=== PATIENT | male | born 1965 | race Caucasian/White ===

== ENCOUNTER 2016-11-22 20:47 | Observation (INO) ==
[2016-11-22 21:06] LABS: Basophils % 0.3 %; Eosinophils # 0.1 K/mcL (0.0-0.6); Eosinophils % 0.8 %; Hemoglobin 15.2 g/dL (12.9-16.9); Immature Granulocytes % 0.2 % (0-4); Lymphocytes # 2.6 K/mcL (0.6-4.6); Lymphocytes % 26.2 %; Mean Corpuscular HGB Conc 33.8 g/dL (31.6-35.5); Mean Corpuscular Hemoglobin 29.7 pg (28.0-33.3); Mean Corpuscular Volume 87.9 fL (83.0-100.0); Mean Platelet Volume 11.5 fL (9.4-12.4); Monocytes # 0.9 K/mcL (0.0-1.3); Neutrophils # 6.3 K/mcL (1.6-8.9); Platelet Count 227 K/mcL (140-400); Red Blood Count 5.12 M/mcL (4.19-5.50); Red Cell Distribution Width 13.8 % (11.5-14.5); Segmented Neutrophils % 63.5 %
[2016-11-22 21:10] LABS: INR 1.1; Prothrombin Time 12.3 Seconds (9.4-12.1)
[2016-11-22 21:13] LABS: Activated Partial Thrombo Time 30.3 Seconds (26.0-36.0)
[2016-11-22 21:20] LABS: BUN/Creatinine Ratio 19 (6-26); Blood Urea Nitrogen 19 mg/dL (8-26); Calcium 9.5 mg/dL (8.6-10.8); Carbon Dioxide 26 mEq/L (19-29); Chloride 108 mEq/L (98-109); Glucose 150 mg/dL (70-99); Osmolality,Calculated 299 (280-300); Potassium 3.7 mEq/L (3.5-4.5); Sodium 142 mEq/L (136-145); eGFR For African Americans > 60 (> 60); eGFR For Non-African Americans > 60 (> 60)
[2016-11-22] MEDS ORDERED: Aspirin 325 MG TABLET PO ONE (22:47)
--- NOTE | 2016-11-22 22:50 | Emergency Department Note ---
Disposition Clinical Impression: Chest pain Qualifiers: Chest pain type: unspecified Qualified Code(s): R07.9 - Chest pain, unspecified Disposition: Admitted As Inpatient General Adult HPI - General Chief complaint: ED Chest Pain Stated complaint: chest pain Source: patient Limitations: no limitations Nursing Notes Reviewed: Yes Vital Signs Reviewed: Yes - History of Present Illness HPI Narrative: 51-year-old male with a history of hypertension, previous CABG 4 vessels performed at [facility] last January. Presents today with chest pain. Chest pain onset was 2 days ago. He admits to a stabbing pain that is going into his back. He did take one nitroglycerin tablet today with resolution of his pain. EMS arrived on scene to find him with no significant distress and normal vital signs. He had no recent illness. He had no cough or congestion. He denies hemoptysis. EKG on arrival from EMS shows anterolateral ischemic changes however no evidence of STEMI. Pain Scale: 3 - Related Data Home Medications Medication Instructions Recorded Confirmed Aspirin 81 mg PO BID 06/13/16 11/22/16 Atorvastatin Calcium [Lipitor] 80 mg PO HS 11/22/16 11/22/16 Cholecalciferol (D-3) [Vitamin D] 1,000 unit PO DAILY 11/22/16 11/22/16 Cyanocobalamin (Vitamin B-12) 1,000 mcg PO DAILY 11/22/16 11/22/16 [Vitamin B12] Etodolac 500 mg PO BID 11/22/16 11/22/16 Gabapentin [Neurontin] 800 mg PO TID 11/22/16 11/22/16 Levothyroxine [Synthroid] 25 mcg PO QAM 11/22/16 11/22/16 Previous Rx's Medication Instructions Recorded Clopidogrel [Plavix] 75 mg PO DAILY #30 tablet 01/10/16 Metoprolol [Lopressor] 12.5 mg PO BID #30 tablet 01/10/16 Nitroglycerin 0.4 mg SL Q5MIN PRN #25 tab.subl 01/10/16 Allergies Allergy/AdvReac Type Severity Reaction Status Date / Time Penicillins Allergy Anaphylaxis Verified 01/07/16 17:38 All systems ED: reviewed and negative except as stated. Past Medical History - Past Medical History Medical history: Reports: no medical history, coronary artery disease, hypertension, myocardial infarction Surgical history: Reports: no surgical history Psychiatric history: Reports: no psych history - Social History Smoking Status: Current every day smoker Smokeless Tobacco Status: No Alcohol use: Reports: occasionally Drug use: Reports: none Physical Exam - General Limitations: no limitations General appearance: alert, in no apparent distress, appears intoxicated - Head Head exam: atraumatic - Eye Eye exam: Present: normal appearance - ENT ENT exam: normal exam - Neck Neck exam: Present: normal inspection, full ROM - Chest Chest inspection: Present: normal inspection - Respiratory Respiratory exam: Present: normal lung sounds bilaterally - Cardiovascular Cardiovascular exam: Present: regular rate, normal rhythm - Abdominal Exam Abdominal exam: Present: soft, Non-Tender - Expanded Lower Extremity Exam Gait: observed and normal - Back Exam Back exam: Present: normal inspection - Neurological Exam Neurological exam: Present: alert, oriented X3, CN II-XII intact - Psychiatric Psychiatric exam: Present: normal affect, normal mood - Skin Skin exam: Present: warm, dry Course Vital Signs Temperature 98.3 F 11/22/16 20:48 Pulse Rate 80 11/22/16 20:48 Respiratory Rate 16 11/22/16 20:48 Blood Pressure 00/00 11/22/16 20:48 O2 Sat by Pulse Oximetry 96 11/22/16 20:48 Temperature 98.3 F 11/22/16 20:48 Pulse Rate 66 11/22/16 22:10 Respiratory Rate 16 11/22/16 20:48 Blood Pressure 124/73 11/22/16 22:10 O2 Sat by Pulse Oximetry 95 11/22/16 22:10 Oxygen Delivery Oxygen Delivery Room Air Medical Decision Making - [facility] Narrative Medical decision making narrative: Male patient with history of CABG. He has some suspicious anterolateral ST segment depression which could represent ischemia. There is no evidence of STEMI. He has no current pain. Aspirin was administered. CT scan of the chest shows no evidence of pulmonary embolism or aortic dissection. Given his high-risk history as well as EKG changes which are new compared to previous EKG I would proceed with admission for acute coronary syndrome rule out. I discussed the case with the hospitalist team. The patient will be admitted to the hospitalist service. EKG shows sinus rhythm with multifocal premature ventricular contractions and normal access with normal intervals with ST segment depression in leads V4, V5, V6 as well as sloping T waves in leads 2 and 3 - Lab Data Result diagrams: 11/22/16 20:56 11/22/16 20:51 Lab Results 11/22/16 11/22/16 11/22/16 Range/Units 20:51 20:51 20:51 WBC (4.3-11.1) K/mcL RBC (4.19-5.50) M/mcL Hgb (12.9-16.9) g/dL Hct (37.5-50.1) % MCV (83.0-100.0) fL MCH (28.0-33.3) pg MCHC (31.6-35.5) g/dL RDW (11.5-14.5) % Plt Count (140-400) K/mcL MPV (9.4-12.4) fL Immature Gran % (0-4) % Seg Neutrophils % % Lymphocytes % % Monocytes % % Eosinophils % % Basophils % % Neutrophils # (1.6-8.9) K/mcL Lymphocytes # (0.6-4.6) K/mcL Monocytes # (0.0-1.3) K/mcL Eosinophils # (0.0-0.6) K/mcL Basophils # (0.0-0.2) K/mcL PT 12.3 H (9.4-12.1) Seconds INR 1.1 APTT 30.3 (26.0-36.0) Seconds Sodium 142 (136-145) mEq/L Potassium 3.7 (3.5-4.5) mEq/L Chloride 108 (98-109) mEq/L Carbon Dioxide 26 (19-29) mEq/L BUN 19 (8-26) mg/dL Creatinine 1.02 (0.72-1.25) mg/dL Est GFR ( Amer) > 60 (> 60) Est GFR (Non-Af Amer) > 60 (> 60) BUN/Creatinine Ratio 19 (6-26) Glucose 150 H (70-99) mg/dL Calculated Osmolality 299 (280-300) Calcium 9.5 (8.6-10.8) mg/dL Troponin I (0-0.03) ng/mL B-Natriuretic Peptide 87 (0-100) pg/mL 11/22/16 11/22/16 Range/Units 20:51 20:56 WBC 10.0 (4.3-11.1) K/mcL RBC 5.12 (4.19-5.50) M/mcL Hgb 15.2 (12.9-16.9) g/dL Hct 45.0 (37.5-50.1) % MCV 87.9 (83.0-100.0) fL MCH 29.7 (28.0-33.3) pg MCHC 33.8 (31.6-35.5) g/dL RDW 13.8 (11.5-14.5) % Plt Count 227 (140-400) K/mcL MPV 11.5 (9.4-12.4) fL Immature Gran % 0.2 (0-4) % Seg Neutrophils % 63.5 % Lymphocytes % 26.2 % Monocytes % 9.0 % Eosinophils % 0.8 % Basophils % 0.3 % Neutrophils # 6.3 (1.6-8.9) K/mcL Lymphocytes # 2.6 (0.6-4.6) K/mcL Monocytes # 0.9 (0.0-1.3) K/mcL Eosinophils # 0.1 (0.0-0.6) K/mcL Basophils # 0.0 (0.0-0.2) K/mcL PT (9.4-12.1) Seconds INR APTT (26.0-36.0) Seconds Sodium (136-145) mEq/L Potassium (3.5-4.5) mEq/L Chloride (98-109) mEq/L Carbon Dioxide (19-29) mEq/L BUN (8-26) mg/dL Creatinine (0.72-1.25) mg/dL Est GFR ( Amer) (> 60) Est GFR (Non-Af Amer) (> 60) BUN/Creatinine Ratio (6-26) Glucose (70-99) mg/dL Calculated Osmolality (280-300) Calcium (8.6-10.8) mg/dL Troponin I 0.02 (0-0.03) ng/mL B-Natriuretic Peptide (0-100) pg/mL
[2016-11-22] MEDS ORDERED: Naloxone 0.4 MG/ML INJ IVP PRN (23:54)
[2016-11-22] MEDS ORDERED: Acetaminophen 325 MG TABLET PO PRN (23:54)
--- NOTE | 2016-11-22 23:57 | Internal Med History&Physical ---
Date of Encounter: 11/22/16 Time of Encounter: 23:40 Assessment and Plan (1) Chest pain Current visit: Yes Status: Acute Patient reports left shoulder/upper back pain, similar to his pain at previous CA. Consider unstable angina given his underlying cardiac disease and smoking and family history. Currently pain is resolved. Continue Telemetry monitoring and serial Troponins. Continue ASA, Plavix, beta-dimas and statin. Stress test tomorrow. Outpatient Cardiology f/up. Qualifiers: Chest pain type: unspecified Qualified Code(s): R07.9 - Chest pain, unspecified (2) CAD (coronary artery disease) Current visit: Yes Status: Chronic continue ASA, Plavix, statin and beta-dimas; Qualifiers: Coronary Disease-Associated Artery/Lesion type: bypass graft [place] vs. transplanted heart: [place] heart Associated angina: without angina Qualified Code(s): I25.810 - Atherosclerosis of coronary artery bypass graft(s) without angina pectoris (3) CHF (congestive heart failure) Current visit: Yes Status: Chronic not in acute exacerbation. Echocardiogram from 01/2016 shows mildly decreased EF 40-45%. Continue beta-dimas and Telemetry monitoring. Qualifiers: Congestive heart failure type: systolic Congestive heart failure chronicity : chronic Qualified Code(s): I50.22 - Chronic systolic (congestive) heart failure (4) Hypothyroidism Current visit: Yes Status: Chronic resume home dose of Levothyroxine; Qualifiers: Hypothyroidism type: unspecified Qualified Code(s): E03.9 - Hypothyroidism , unspecified Internal Medicine - H&P: HPI Chief complaint: Chest pain Admitted From: Emergency Dept Plans for Post Hospital Care: Home History of present illness: Mr. Graff is a 51 year old male with h/o- CAD/CABG and stent placement last year, presents with c/o- left-sided shoulder and upper back pain, that is similar to his previous CA pain. His pain started 2 days ago and he kept having intermittent transient episodes daily, with slightly increasing intensity. His last episode was this evening and he decided to call EMS and come in for evaluation. His pain somewhat subsided with Nitroglycerin he took at home, has been pain-free since being to ER. Had slight dizziness but no associated syncope , dyspnea, diaphoresis, nausea or emesis. He does follow with as an outpatient. Past Med Surg Social Fam HX - Past Medical History Medical history: CHF, coronary artery disease, hypertension, myocardial infarction Psychiatric history: no psych history - Past Surgical History Surgical History: coronary bypass (CABG) - Social History Smoking Status: Former smoker (quit since his CA last year; currently uses vapour pen) Smokeless Tobacco Status: No Alcohol use: occasionally Drug use: none Occupational status: disabled Current living situation: Home, With Family Activity Level: Independent ambulation Recent Out of Country Travel Within the Last 8 Weeks: No - Family History Brother Adopted: No Family Member Ethnicity: Non- Twin of Family Member: Yes, Fraternal Living Status: Hx Family Cardiac Disorders: Yes (massive heart attack) Hx Family Respiratory Disorders: Yes Hx Family Cancer: Yes Hx Family GI Disorders: No Hx Family Endocrine Disorder: Yes Hx Family Neuromuscular Disorders: No Hx Family Neurologic Disorders: No Hx Family HEENT Disorders: No Hx Family Autoimmune Disorders: No Internal Medicine - H&P: Meds Clopidogrel [Plavix] 75 mg PO DAILY #30 tablet 01/10/16 [Rx] Metoprolol [Lopressor] 12.5 mg PO BID #30 tablet 01/10/16 [Rx] Nitroglycerin 0.4 mg SL Q5MIN PRN #25 tab.subl 01/10/16 [Rx] Aspirin 81 mg PO BID 06/13/16 [History] Atorvastatin Calcium [Lipitor] 80 mg PO HS 11/22/16 [History] Cholecalciferol (D-3) [Vitamin D] 1,000 unit PO DAILY 11/22/16 [History] Cyanocobalamin (Vitamin B-12) [Vitamin B12] 1,000 mcg PO DAILY 11/22/16 [History ] Etodolac 500 mg PO BID 11/22/16 [History] Gabapentin [Neurontin] 800 mg PO TID 11/22/16 [History] Levothyroxine [Synthroid] 25 mcg PO QAM 11/22/16 [History] Allergies Penicillins Allergy (Verified 01/07/16 17:38) Anaphylaxis All Systems PM: A 10-system review of systems was performed and is negative for pertinent findings except as documented above in the HPI. - Constitutional Constitutional: no chills, no fever(s), no night sweats - EENT Eyes: no change in vision, no discharge, no pain, no photophobia Ears: no ear discharge, no ear pain, no tinnitus Nose, mouth and throat: no dysphagia, no nasal discharge, no neck pain, no sore throat - Cardiovascular Cardiovascular ROS IM: chest pain (left shoulder and upper back pain, similar to his previous CA pain), lightheadedness - Respiratory Respiratory: no cough, no dyspnea, no wheezing, no excessive phlegm production - Gastrointestinal Gastrointestinal: no abdominal pain, no diarrhea, no hematemesis, no hematochezia, no melena, no nausea, no vomiting - Musculoskeletal Musculoskeletal ROS IM: other (left leg pain since CABG graft was taken from left leg; unable to walk long distances), no numbness, no tingling - Integumentary Integumentary IM: no rash, no unusual bruising - Neurological Neurological ROS: no confusion, no convulsions, no focal weakness, no numbness, no tingling, no tremor(s) - Hematologic/Lymphatic Hematologic/Lymphatic: no easy bruising - Constitutional Vitals: Temp Pulse Resp BP Pulse Ox 99.4 F 56 16 128/79 97 11/22/16 23:33 11/22/16 23:33 11/22/16 23:33 11/22/16 23:33 11/22/16 23:33 General appearance: Present: A&O X 3, answers questions appropriately - Respiratory Respiratory exam: Present: CTAB. Absent: accessory muscle use, rales, rhonchi, wheezes - Cardiovascular Cardiovascular exam: Present: RRR, +S1, +S2. Absent: diastolic murmur, gallop, rubs, systolic murmur - GI/Abdominal GI/Abdominal exam: Present: normal bowel sounds, soft, no peritoneal signs. Absent: distended, tenderness - Extremities Exam Extremities exam: Present: full ROM, warm, radial pulses palpable and symetrical. Absent: calf tenderness, cyanotic, pedal edema - Neurological Exam Neurological exam: Present: CN II-XII intact, oriented X3, no focal deficits. Absent: pronater drift, facial droop, speech deficit - Skin Skin exam: Present: dry, intact Internal Med - H&P Results - Labs CBC & Chem 7: 11/22/16 20:56 11/22/16 20:51 - EKG Data -: EKG Interpreted by Myself EKG shows normal: sinus rhythm (multiple PVCs and aberrant conduction? nonspecific ST changes/depression in lateral leads, but difficult to interpret) Rate: normal
[2016-11-23 00:50] LABS: Basophils # 0.1 K/mcL (0.0-0.2); Basophils % 0.5 %; Eosinophils % 0.4 %; Hematocrit 44.2 % (37.5-50.1); Hemoglobin 14.8 g/dL (12.9-16.9); Immature Granulocytes % 0.3 % (0-4); Lymphocytes # 2.3 K/mcL (0.6-4.6); Lymphocytes % 22.3 %; Mean Corpuscular HGB Conc 33.5 g/dL (31.6-35.5); Mean Corpuscular Hemoglobin 29.2 pg (28.0-33.3); Mean Corpuscular Volume 87.2 fL (83.0-100.0); Mean Platelet Volume 11.6 fL (9.4-12.4); Monocytes # 0.8 K/mcL (0.0-1.3); Monocytes % 7.6 %; Neutrophils # 7.2 K/mcL (1.6-8.9); Platelet Count 236 K/mcL (140-400); Red Blood Count 5.07 M/mcL (4.19-5.50); Red Cell Distribution Width 13.7 % (11.5-14.5); Segmented Neutrophils % 68.9 %
[2016-11-23 01:05] LABS: BUN/Creatinine Ratio 21 (6-26); Blood Urea Nitrogen 18 mg/dL (8-26); Calcium 9.1 mg/dL (8.6-10.8); Carbon Dioxide 20 mEq/L (19-29); Chloride 112 mEq/L (98-109); Chol/HDL Ratio 3.8 (0-4.9); Cholesterol 151 mg/dL (< 200); Glucose 122 mg/dL (70-99); HDL Cholesterol 40 mg/dL (40-59); LDL Cholesterol,Calculated 86 mg/dL (0-99); Magnesium 2.1 mg/dL (1.6-2.6); Osmolality,Calculated 295 (280-300); Phosphorous 3.2 mg/dL (2.3-4.7); Potassium 3.9 mEq/L (3.5-4.5); Sodium 141 mEq/L (136-145); Triglycerides 124 mg/dL (< 150); eGFR For African Americans > 60 (> 60); eGFR For Non-African Americans > 60 (> 60)
[2016-11-23] MEDS: Levothyroxine 25 MCG TABLET PO SCH (05:43)
[2016-11-23] MEDS ORDERED: Regadenoson 0.4 MG/5 ML SYRINGE IVP ONE (06:47)
[2016-11-23] MEDS: Cholecalciferol (D-3) 1,000 UNIT TABLET PO SCH (11:20)
[2016-11-23] MEDS: Gabapentin 400 MG CAPSULE PO SCH ×3 (11:20→20:41)
[2016-11-23] MEDS: Aspirin 81 MG TAB.CHEW PO SCH ×2 (11:20→20:41)
[2016-11-23] MEDS: Cyanocobalamin (B-12) 1,000 MCG TABLET PO SCH (11:20)
--- NOTE | 2016-11-23 12:02 | Nuclear Medicine Stress Report ---
Regadenoson Nuclear Stress Name: Reyes Graff Date of Study: 11/23/2016 Date: 1965 Ht: 62.0 in Medical Record#: [id number] Age: 51 Wt: 150.0 lb Gender: Male Order #: [id number] Location: [facility] Room: [facility] Supervising Provider: Gerard Maldonado CNP Reading Physician: Arnold Turpin MD, [facility] Ordering Physician: Myrna Grady CNP Primary Care Physician: Kaley Pyle CNP Stress Technologist: Erwin Gonzalez, CHANNEL WORKER, CCT Nurse First Aid: Martin Espinoza Indications: L shoulder pain Impression: Perfusion imaging was positive for inferior infarct with mild vishal-infarct ischemia (SDS - 2). Pharmacologic ECG was non diagnostic for ischemia. Patient had no chest pain with stress. Normal hemodynamic response. Gated EF = 67%. There is no evidence of TID. The LV is not dilated. Ordering provider and cardiology consultation notified. History: Hypertension Hypercholesteremia History of Smoking Prior PCI History of Coronary Artery Bypass Surgery Stress Test Summary: Stress Test Type: Pharmacologic Regadenoson 0.4mg/5ml given IV Baseline Information: Initial Heart Rate: 64 Blood Pressure: 110/84 Stress Information: Stress Time: 4 min 00 sec Test Terminated Due to (primary): Completed Protocol Maximum Blood Pressure: 124/84 Maximum Heart Rate: 103 Percent Maximum Heart Rate Achieved: 61 Double Product: 12,772 METS Reached: 1 Symptoms: Shortness of breath Nuclear Summary: SPECT myocardial perfusion imaging using Tc99m Sestamibi given intravenously was performed at rest and following cardiac stress testing. The resting images were obtained following initial dose of 10.8 mCi. Following stress an additional dose of 35.7 mCi was given at peak exercise or 30 seconds post regadenoson infusion. Medication Given: Time Medication Dose Units Route Findings: Stress Note * Resting ECG demonstrated normal sinus rhythm. * No baseline arrhythmias were noted. * Pharmacologic stress ECG is non diagnostic for ischemia due to failure to reach target heartrate. * Rare PVCs noted during stress. * Patient had no chest pain during stress. Study Quality * Study quality is average. Hemodynamic responses * Normal hemodynamic responses to pharmacologic stress. Gated EF % * Gated EF = 67%. Left Ventricle * The left ventricle is not dilated. NORMALS * Normal wall motion. Inferior Perfusion Stress * No evidence of uptake in inferior segment. Inferior Perfusion Rest * No evidence of uptake in inferior segment. TID * No evidence of transient ischemic dilatation. TID ratio * TID ratio = 1.0. Updated by Arnold Turpin MD, FACC on 11/23/2016 11:55:06 AM electronically signed on 11/23/2016 11:59:44 AM with status of Final
--- NOTE | 2016-11-23 13:36 | Cardiology Consult Note ---
<Gerard Maldonado - Last Filed: 11/23/16 13:30> Date of Encounter: 11/23/16 Time of Encounter: 15:30 Assessment and Plan (1) Abnormal stress test Current Visit: Yes Status: Acute Stress test revealed inferior infarct and mild vishal-infarct ischemia. H/o inferior infarct in 2016 s/p PCI to the RCA at that time. He later went for CABG with Dr. Marcano 02/2016. Continue asa, statin, and bb. Medical managment vs. C discussed. Will discuss further with Dr. Bermudez. (2) CAD (coronary artery disease) Current Visit: Yes Status: Chronic S/p PCI to RCA and CABG in 2016. continue ASA, Plavix, statin and beta-dimas; Qualifiers: Coronary Disease-Associated Artery/Lesion type: bypass graft [place] vs. transplanted heart: [place] heart Associated angina: without angina Qualified Code(s): I25.810 - Atherosclerosis of coronary artery bypass graft(s) without angina pectoris (3) PVC (premature ventricular contraction) Current Visit: Yes Status: Acute Frequent PVC seen on telemetry. No runs of NSVT seen. Avg HR 61 bpm NSR. HR frequently in the 50's. Unable to titrate bb. Continue to monitor. (4) Cardiomyopathy Current Visit: Yes Status: Acute H/o mild ischemic cardiomyoapthy. EF 40%-45%. Gated EF 67% on stress test. Currently euvolemic. Qualifiers: Cardiomyopathy type: ischemic Qualified Code(s): I25.5 - Ischemic cardiomyopathy Discussion w patient/family: The assessment and plan as outlined above was discussed with the patient and/or family members who expressed understanding and agreement. All questions were answered. Thank you for involving us in the care of your patient. Please call with any questions. History of Present Illness Consult date: 11/23/16 Requesting physician: Carmen Arias Consult reason: Abnormal stress test Chief complaint: Chest pain, scapular back pain History of present illness: Mr. Graff is a 51 year old male with h/o CABG x 4 on 03/06/[address] Marcano at [facility], post operative afib, ischemic cardiomyoapthy with EF 40-45%, and hypertension. He presents with left scapular pain for the last 24 hours. Pain is intermittent and does not occur with physical exertion. States he had left scapular pain with previous WI. Troponin found to be negative. EKG unchanged from previous, SR with T wave changes, multiple PVC. Cardiology consulted for abnormal stress test. Cardiac catheterization 01/07/16: Severe 3V CAD. EF 40%. 50% stenosis in the LMCA, 80% stenosis in the Proximal LAD, 80% stenosis in the Mid LAD, 80% stenosis in the Proximal Circumflex, 60% stenosis in the Mid Circumflex. 100% stenosis in the Proximal RCA. Thrombus present. PTCA/ JACOB to Proximal RCA. 100% stenosis in the Mid RCA. Thrombus present. PTCA/JACOB to mRCA with good results. Echocardiogram 01/08/16: LVEF 40-45%. Mild global LV systolic dysfunction with regional variations. RV is not well visualized, grossly there is normal function. No significant valvular dysfunction. Estimated RVSP was 17 mmHg. No pulmonary hypertension. The IVC is not dilated. Past Med Surg Social Fam HX - Past Medical History Medical history: CHF, coronary artery disease, hypertension, myocardial infarction Psychiatric history: no psych history - Past Surgical History Surgical History: coronary bypass (CABG) - Social History Smoking Status: Former smoker (quit since his WI last year; currently uses vapour pen) Smokeless Tobacco Status: No Alcohol use: occasionally Drug use: none - Family History Brother Adopted: No Family Member Ethnicity: Non- Twin of Family Member: Yes, Fraternal Living Status: Hx Family Cardiac Disorders: Yes (massive heart attack) Hx Family Respiratory Disorders: Yes Hx Family Cancer: Yes Hx Family GI Disorders: No Hx Family Endocrine Disorder: Yes Hx Family Neuromuscular Disorders: No Hx Family Neurologic Disorders: No Hx Family HEENT Disorders: No Hx Family Autoimmune Disorders: No Medications and Allergies Clopidogrel [Plavix] 75 mg PO DAILY #30 tablet 01/10/16 [Rx] Metoprolol [Lopressor] 12.5 mg PO BID #30 tablet 01/10/16 [Rx] Nitroglycerin 0.4 mg SL Q5MIN PRN #25 tab.subl 01/10/16 [Rx] Aspirin 81 mg PO BID 06/13/16 [History] Atorvastatin Calcium [Lipitor] 80 mg PO HS 11/22/16 [History] Cholecalciferol (D-3) [Vitamin D] 1,000 unit PO DAILY 11/22/16 [History] Cyanocobalamin (Vitamin B-12) [Vitamin B12] 1,000 mcg PO DAILY 11/22/16 [History ] Etodolac 500 mg PO BID 11/22/16 [History] Gabapentin [Neurontin] 800 mg PO TID 11/22/16 [History] Levothyroxine [Synthroid] 25 mcg PO QAM 11/22/16 [History] Allergies Penicillins Allergy (Verified 01/07/16 17:38) Anaphylaxis All Systems Review: A 10-system review of systems was performed and is negative for pertinent findings except as documented above in the HPI. Physical Examination Vital Signs, Last 4 Hours Temp Pulse Resp BP Pulse Ox 11/23/16 11:39 98.7 F 59 14 101/61 95 General: Conversant, No Apparent Distress HEENT: Atraumatic, Normocephaly, Mucus Membranes Moist Neck: No JVD, Normal carotid pulses Cardiac: Reg Rate and Rhythm, Normal S1 and S2, No Murmur Lungs: Normal Breath Sounds, No Wheeze, Rales, Rhonchi Neuro: Alert and responsive, No focal deficits noted Abdomen: Soft, Non-Tender Skin: No rashes noted on visualized skin Musculoskeletal: No Chest Wall Tenderness Extremities: No Clubbing, No Cyanosis, No Edema, Normal Pulses Results 11/23/16 00:22 11/23/16 00:22 Lab Results 11/23/16 11/23/16 11/23/16 00:22 00:22 00:22 WBC 10.5 Hgb 14.8 Hct 44.2 Plt Count 236 Sodium 141 Potassium 3.9 Chloride 112 H Carbon Dioxide 20 BUN 18 Creatinine 0.86 Glucose 122 H Calcium 9.1 Magnesium 2.1 Troponin I 0.00 11/23/16 11/23/16 05:45 12:09 WBC Hgb Hct Plt Count Sodium Potassium Chloride Carbon Dioxide BUN Creatinine Glucose Calcium Magnesium Troponin I 0.01 0.01 Chest X-Ray 11/22/16 20:50 IMPRESSION: 1. No acute cardiopulmonary disease. D/ / Fredrick Caal MD / Fredrick Caal MD Interpreting Provider: Fredrick Caal MD Chest CTA 11/22/16 21:28 IMPRESSION: No PE identified. Mild pulmonary emphysema. D/ / Naun Nicholson MD / Naun Nicholson MD Interpreting Provider: Naun Nicholson MD - Imaging and Cardiology Stress Test: report reviewed - EKG Interpretation EKG results cardiology: personally reviewed Consult Discharge Plan - Plan Referrals: Kaley Pyle, RADIO FREQUENCY TECHNICIAN [Primary Care Provider] - <Darrell Bermudez - Last Filed: 11/24/16 08:21> Date of Encounter: 11/24/16 Assessment and Plan Discussion w patient/family: The assessment and plan as outlined above was discussed with the patient and/or family members who expressed understanding and agreement. All questions were answered. Thank you for involving us in the care of your patient. Please call with any questions. Angina appears to be mild. GXT does not warrant a cath at present . Will try Imdur ambulation if CP persists will consider cath d/w patient and History of Present Illness History of present illness: Mr. Graff is a 51 year old male All Systems Review: A 10-system review of systems was performed and is negative for pertinent findings except as documented above in the HPI. Physical Examination Vital Signs, Last 4 Hours Temp Pulse Resp BP Pulse Ox 11/24/16 07:21 97.3 F L 57 16 96/60 95 Results 11/23/16 00:22 11/23/16 00:22 Lab Results 11/23/16 12:09 Troponin I 0.01
--- NOTE | 2016-11-23 18:51 | Internal Med Progress Note ---
Date of Encounter: 11/23/16 Time of Encounter: 15:00 - Assessment and plan (1) Tobacco abuse Current Visit: No Status: Chronic Assessment and plan: He quit smoking cigarettes 6 months ago but continues to use inhaler vaporized nicotine. I have advised him regarding the health hazards of nicotine. (2) WPW (Hxpve-Nclfidbux-Atkpc syndrome) Current Visit: No Status: Acute Assessment and plan: EKG shows ventricular preexcitation. We will avoid calcium channel blockers. Monitor on telemetry. (3) Chest pain Current Visit: Yes Status: Acute Assessment and plan: We will treat with nitroglycerin as needed. Qualifiers: Chest pain type: unspecified Qualified Code(s): R07.9 - Chest pain, unspecified (4) CAD (coronary artery disease) Current Visit: Yes Status: Chronic Qualifiers: Coronary Disease-Associated Artery/Lesion type: bypass graft [place] vs. transplanted heart: [place] heart Associated angina: without angina Qualified Code(s): I25.810 - Atherosclerosis of coronary artery bypass graft(s) without angina pectoris (5) Essential hypertension Current Visit: Yes Status: Acute (6) Abnormal stress test Current Visit: Yes Status: Acute Assessment and plan: We will consult cardiology. Continue to monitor on telemetry. Bedrest. (7) PVC (premature ventricular contraction) Current Visit: Yes Status: Acute Assessment and plan: case monitor. Check and replete electrolytes. - Subjective Interval history: Patient presented with left shoulder and back pain radiating to the chest, currently has resolved. His pain had resolved yesterday with nitroglycerin. No nausea or diaphoresis reported. - Constitutional Vitals: Temp Pulse Resp BP Pulse Ox 98.4 F 51 16 100/61 96 11/23/16 15:13 11/23/16 15:13 11/23/16 15:13 11/23/16 15:13 11/23/16 15:13 General appearance: Present: A&O X 3, answers questions appropriately - Respiratory Respiratory exam: Present: CTAB. Absent: accessory muscle use, rales, rhonchi, wheezes - Cardiovascular Cardiovascular exam: Present: RRR, +S1, +S2. Absent: diastolic murmur, gallop, rubs, systolic murmur - GI/Abdominal GI/Abdominal exam: Present: normal bowel sounds, soft, no peritoneal signs. Absent: distended, tenderness - Extremities Exam Extremities exam: Present: warm, radial pulses palpable and symetrical. Absent : calf tenderness, cyanotic, pedal edema - Skin Skin exam: Present: dry, intact Internal Medicine: Result - Labs CBC & Chem 7: 11/23/16 00:22 11/23/16 00:22 Labs: Short CBC 11/23/16 Range/Units 00:22 WBC 10.5 (4.3-11.1) K/mcL Hgb 14.8 (12.9-16.9) g/dL Hct 44.2 (37.5-50.1) % Plt Count 236 (140-400) K/mcL Neutrophils # 7.2 (1.6-8.9) K/mcL BMP 11/23/16 00:22 Sodium 141 Potassium 3.9 Chloride 112 H Carbon Dioxide 20 BUN 18 Creatinine 0.86 Glucose 122 H Calcium 9.1 Cardiac Enzymes 11/23/16 11/23/16 11/23/16 Range/Units 00:22 05:45 12:09 Troponin I 0.00 0.01 0.01 (0-0.03) ng/mL - ABG Interpretation ABG results: PT/INR, D-dimer PT 12.3 Seconds (9.4-12.1) H 11/22/16 20:51 Consult Discharge Plan - Plan Referrals: Kaley Pyle, ROBERT [Primary Care Provider] -
[2016-11-24] MEDS: Levothyroxine 25 MCG TABLET PO SCH (06:34)
[2016-11-24] MEDS: Aspirin 81 MG TAB.CHEW PO SCH ×2 (08:17→21:11)
[2016-11-24] MEDS: Cholecalciferol (D-3) 1,000 UNIT TABLET PO SCH (08:17)
[2016-11-24] MEDS: Cyanocobalamin (B-12) 1,000 MCG TABLET PO SCH (08:17)
[2016-11-24] MEDS: Gabapentin 400 MG CAPSULE PO SCH ×3 (08:18→21:11)
--- NOTE | 2016-11-24 10:42 | Cardiology Progress Note ---
Date of Encounter: 11/24/16 Time of Encounter: 10:00 Assessment and Plan (1) Abnormal stress test Current Visit: Yes Status: Acute Stress test revealed inferior infarct and mild vishal-infarct ischemia. H/o inferior infarct in 2016 s/p PCI to the RCA at that time. He later went for CABG with Dr. Marcano 02/2016. Continue asa, statin, and bb. Medical managment vs. LHC discussed. Discussed with Dr. Bermudez, medical management is recommended. Imdur started. Ambulate in the hallway to assess for recurrent symptoms. Close outpatient follow-up if no recurrent symptoms. (2) CAD (coronary artery disease) Current Visit: Yes Status: Chronic S/p PCI to RCA and CABG in 2016. continue ASA, Plavix, statin and beta-dimas; Qualifiers: Coronary Disease-Associated Artery/Lesion type: bypass graft [place] vs. transplanted heart: [place] heart Associated angina: without angina Qualified Code(s): I25.810 - Atherosclerosis of coronary artery bypass graft(s) without angina pectoris (3) PVC (premature ventricular contraction) Current Visit: Yes Status: Acute Frequent PVC seen on telemetry. No runs of NSVT seen. Avg HR 61 bpm NSR. HR frequently in the 50's. Unable to titrate bb. Continue to monitor. (4) Cardiomyopathy Current Visit: Yes Status: Acute H/o mild ischemic cardiomyoapthy. EF 40%-45%. Gated EF 67% on stress test. Currently euvolemic. Qualifiers: Cardiomyopathy type: ischemic Qualified Code(s): I25.5 - Ischemic cardiomyopathy Discussion w patient/family: The assessment and plan as outlined above was discussed with the patient and/or family members who expressed understanding and agreement. All questions were answered. Thank you for involving us in the care of your patient. Please call with any questions. Subjective Principal diagnosis: Abnormal stress test Interval history: Currently denies pain. Reported left-sided mild scapular pain on admission and intermittently. Objective Vital Signs, Last 4 Hours Temp Pulse Resp BP Pulse Ox 11/24/16 07:21 97.3 F L 57 16 96/60 95 General: Conversant, No Apparent Distress HEENT: Atraumatic, Normocephaly, Mucus Membranes Moist Neck: No JVD, Normal carotid pulses Cardiac: Reg Rate and Rhythm, Normal S1 and S2, No Murmur Lungs: Normal Breath Sounds, No Wheeze, Rales, Rhonchi Neuro: Alert and responsive, No focal deficits noted Abdomen: Soft, Non-Tender Skin: No rashes noted on visualized skin Musculoskeletal: No Chest Wall Tenderness Extremities: No Clubbing, No Cyanosis, No Edema, Normal Pulses Results 11/23/16 00:22 11/23/16 00:22 Lab Results 11/23/16 12:09 Troponin I 0.01 - Imaging and Cardiology Stress Test: report reviewed Consult Discharge Plan - Plan Referrals: Kaley Pyle, [employer] [Primary Care Provider] -
--- NOTE | 2016-11-24 17:45 | Internal Med Progress Note ---
Date of Encounter: 11/24/16 Time of Encounter: 10:00 - Assessment and plan (1) Tobacco abuse Current Visit: No Status: Chronic Assessment and plan: He quit smoking cigarettes 6 months ago but continues to use inhaler vaporized nicotine. I have advised him regarding the health hazards of nicotine. (2) WPW (Xvqog-Pibwupvwy-Pwecv syndrome) Current Visit: No Status: Acute Assessment and plan: EKG shows ventricular preexcitation. We will avoid calcium channel blockers. Monitor on telemetry. (3) Chest pain Current Visit: Yes Status: Acute Assessment and plan: Had a positive stress test. It showed fixed inferior defect with vishal-infarct ischemia. Cardiology was consulted. I appreciate the recommendations. Patient was started on isosorbide. We will monitor for 24 hours for recurrence of chest pain if this recurs we will plan for cardiac catheterization. I will keep patient nothing by mouth after midnight. If symptoms are controlled with isosorbide then will discharge patient home with close follow-up with cardiology. Qualifiers: Chest pain type: unspecified Qualified Code(s): R07.9 - Chest pain, unspecified (4) CAD (coronary artery disease) Current Visit: Yes Status: Chronic Assessment and plan: Continue aspirin Plavix, Lipitor and metoprolol. Qualifiers: Coronary Disease-Associated Artery/Lesion type: bypass graft [place] vs. transplanted heart: [place] heart Associated angina: without angina Qualified Code(s): I25.810 - Atherosclerosis of coronary artery bypass graft(s) without angina pectoris (5) Essential hypertension Current Visit: Yes Status: Acute (6) Abnormal stress test Current Visit: Yes Status: Acute Assessment and plan: Appreciate cardiology recommendations. Nothing by mouth past midnight for possible stress test. 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 Check and replete electrolytes. - Subjective Interval history: 11/24/2016: Patient reported some left upper chest and shoulder pain last night which was mild to moderate, nothing over the last 12 hours. Pain was milder than the previous episode. Denies associated diaphoresis and shortness of breath. 11/23/2016: Patient presented with left shoulder and back pain radiating to the chest, currently has resolved. His pain had resolved yesterday with nitroglycerin. No nausea or diaphoresis reported. - Constitutional Vitals: Temp Pulse Resp BP Pulse Ox 97.6 F 57 16 99/64 97 11/24/16 15:01 11/24/16 15:01 11/24/16 15:01 11/24/16 15:01 11/24/16 15:01 General appearance: Present: A&O X 3, answers questions appropriately - Respiratory Respiratory exam: Present: CTAB. Absent: accessory muscle use, rales, rhonchi, wheezes - Cardiovascular Cardiovascular exam: Present: RRR, +S1, +S2. Absent: diastolic murmur, gallop, rubs, systolic murmur - GI/Abdominal GI/Abdominal exam: Present: normal bowel sounds, soft, no peritoneal signs. Absent: distended, tenderness - Extremities Exam Extremities exam: Present: warm, radial pulses palpable and symetrical. Absent : calf tenderness, cyanotic, pedal edema - Skin Skin exam: Present: dry, intact Internal Medicine: Result - Labs CBC & Chem 7: 11/23/16 00:22 11/23/16 00:22 - ABG Interpretation ABG results: PT/INR, D-dimer PT 12.3 Seconds (9.4-12.1) H 11/22/16 20:51 Consult Discharge Plan - Plan Referrals: Kaley Pyle, NEWSPERSON [Primary Care Provider] -
[2016-11-25] MEDS: Levothyroxine 25 MCG TABLET PO SCH (05:39)
[2016-11-25 06:13] LABS: BUN/Creatinine Ratio 20 (6-26); Blood Urea Nitrogen 18 mg/dL (8-26); Calcium 8.7 mg/dL (8.6-10.8); Carbon Dioxide 24 mEq/L (19-29); Chloride 109 mEq/L (98-109); Glucose 99 mg/dL (70-99); Osmolality,Calculated 292 (280-300); Potassium 3.8 mEq/L (3.5-4.5); Sodium 140 mEq/L (136-145); eGFR For African Americans > 60 (> 60); eGFR For Non-African Americans > 60 (> 60)
[2016-11-25] MEDS: Cyanocobalamin (B-12) 1,000 MCG TABLET PO SCH (10:18)
[2016-11-25] MEDS: Aspirin 81 MG TAB.CHEW PO SCH (10:18)
[2016-11-25] MEDS: Cholecalciferol (D-3) 1,000 UNIT TABLET PO SCH (10:19)
[2016-11-25] MEDS: Gabapentin 400 MG CAPSULE PO SCH (10:21)
--- NOTE | 2016-11-25 11:09 | Pre-Sedation Evaluation ---
Pre-sedation evaluation - Pre-sedation checklist Date of procedure: 11/25/16 Procedure: HEART CATH Recent Vitals: Last Vital Signs Temp 97.7 F 11/25/16 07:29 Pulse 64 11/25/16 07:29 Resp 16 11/25/16 07:29 BP 106/66 11/25/16 07:29 Pulse Ox 96 11/25/16 07:29 H&P (including ROS) documented in medical record: Yes Previous reaction to sedatives/anesthetics: No Dietary Status: NPO after Midnight Dentition: No loose teeth or bridges ASA Classification *see protocol: CLASS II-Mild systemic disease Plan of Care: Pt appropriate candidate for procedure/moderate/conscious sedation , Risks/benefits of procedure/sedation discussed w/ patient/family
[2016-11-25] MEDS ORDERED: Heparin 1,000 UNITS/500 mL NS 500 ML ONE (11:14)
[2016-11-25] MEDS ORDERED: *HR* Heparin 10,000 UNIT/10 ML VIAL ONE (11:14)
[2016-11-25] MEDS ORDERED: 0.9 % Sodium Chloride 1,000 ML ONE ×2 (11:14→11:22)
[2016-11-25] MEDS ORDERED: Nitroglycerin 1,000 MCG/10 ML VIAL IV ONE (11:15)
[2016-11-25] MEDS ORDERED: *HR* Midazolam HCl 5 MG/5 ML VIAL IVP ONE (11:21)
[2016-11-25] MEDS ORDERED: *HR* FentaNYL (PF) 250 MCG/5 ML VIAL ONE (11:22)
--- NOTE | 2016-11-25 11:28 | Event Note ---
Date of Encounter: 11/25/16 Time of Encounter: 11:27 - Cardiology Event Note Patient continues to c/o left scapular pain despite trial of medical therapy with imdur. Recommend proceeding with stress test for further evaluation. Stress test revealed inferior infarct and mild vishal-infarct ischemia. H/o inferior infarct in 2016 s/p PCI to the RCA at that time. He later went for CABG with Dr. Marcano 02/2016. Continue asa, statin, and bb. Indications, risks, benefits, and alternatives of LHC discussed with patient and .
--- NOTE | 2016-11-25 12:12 | Invasive Diagnostic Lab Proc ---
Name: Reyes Graff Date of Study: 11/25/2016 Date: 1965 Ht: 63.0in Medical Record#: [id number] Age: 51 Wt: 147.27lb Gender: Male BSA: 1.7 Order #: [id number] BMI: 26.09 Physicians Procedure Physician: Arnold Turpin MD, [facility] Referring MD: Referring MD: Staff Name Position Time In Shubham Bronson RN Monitor 11:32 AM Harris Lee RN Harness Cutter 11:32 AM So Vaughan RT (R) Scrub 11:32 AM Indications Indication Coronary Artery Disease Procedures Performed Procedure L HRT ART/GRFT ANGIO Pre-Procedure Checklist Informed consent is complete signed and on chart. H\\T\\P is on chart. ID band is on and ID verified with patient. Patient NPO for procedure The procedure was described for the patient and questions were answered. Blood Pressure: 124/75 ECG is on chart. Rhythm: NSR Plan of Care Patient will tolerate the procedure without complications. Adequate level of comfort will be maintained. Hemodynamics will remain stable Patient will recover from procedure without complications. Respiratory function will be maintained. Cardiac rhythm will remain stable. Patient temperature will be maintained. Patient and/or family have verbalized understanding of the procedure. Patient Education Chief Complaint/Reason for Test: Cardiac Cath Developmental Category: Adult (18-64 years) Developmentally Appropriate for Age: Yes Learning Barriers: None Education Needs: Procedure Education Method: Verbal Information Taught: Cardiac Cath Educational Evaluation: Able to repeat information Intravenous Access Time IV Size Location DC'd Fluid/Drip Rate Units RN 18g 1 07/10" Patent On Arrival Lt Antecubital 0.9NaCl 25 ml/hr Shubham Bronson RN Allergies Penicillins Vital Signs Time BP (mmHg) HR (bpm) O2 Sat. RR (bpm) LOC 106 / 66 64 96 % 16 5 = Fully awake and oriented or at pre-proc level 11:33 AM / % 5 = Fully awake and oriented or at pre-proc level 11:33 AM / % 4 = Oriented but drowsy 11:27 AM 124 / 75 62 99 % 15 11:32 AM 107 / 68 62 100 % 19 11:37 AM 101 / 64 57 98 % 16 11:42 AM 108 / 66 57 98 % 23 11:47 AM 107 / 66 57 98 % 19 11:52 AM 102 / 64 56 97 % 19 11:57 AM 103 / 61 56 97 % 34 11:48 AM / % 5 = Fully awake and oriented or at pre-proc level Procedural Medications Time Medication Dose Units Method Given By 11:32 AM Oxygen 2 L/min nasal cannula Harris Lee RN 11:32 AM Versed 2 mg Intravenous Harris Lee RN 11:32 AM Fentanyl 50 mcg Intravenous Harris Lee RN 11:43 AM Versed 1 mg Intravenous ChantellornHarris fuchs RN 11:43 AM Fentanyl 25 mcg Intravenous Harris Lee RN 11:43 AM Lidocaine 2% 16 ml Subcutaneous Arnold Turpin MD, [facility] ASA Classification: CLASS II- Mild systemic disease (i.e. well-controlled diabetes, hypertension, asthma, cigarette smoking) Mary Score Preprocedure Postprocedure Activity 2- Moves 4 extremities sustained head lift Activity Circulation 2- SBP +/= 20 points of pre-anesthetic level Circulation Consciousness 2- Awake and alert oriented x 3 Consciousness O2 Saturation 2- Able to maintain O2 satruation of 92% on room air O2 Saturation Respiratory 2- Able to deep breathe and cough well Respiratory Total Score 10 Total Score Contrast Agent: Isovue Diagnostic Contrast: 74 ml Total Contrast: 74 ml Fluoro Dose: 238 mGy Procedure Log Time Note Enter By 11:07 AM CathStat 11:27 AM Vitals capture started with the following parameters, Patient=Adult, Interval=5 min, Initial Wlfmtyjs=587 mmHg, Deflation Rate=5 mmHg, Cuff placed on Right Arm 11:27 AM HR=62 bpm, JCNV=505/75 mmhg, SpO2=99.0 %, Resp=15 B/min, Comment=sr 11:32 AM Pt arrived to r and d lab technician 2 at 11:20 csmith 11:32 AM Shubham Bronson RN Position: Monitor Time in: :32 csmith 11:32 AM Harris Lee RN Position: Harness Cutter Time in: 11:32 csmith 11:32 AM So Vaughan RT (R) Position: Scrub Time in: 11:32 csmith 11:32 AM Patient charges- Angio tray pack, Navilyst 3mm J, Pulse Oximetry and ACIST tubing and transducer csmith 11:32 AM Hair removed from procedure site in procedure lab using clippers. Bilateral groin prepped with Chloraprep by Shubham rBonson RN, patient was draped. Skin intact. csmith 11:32 AM Physician arrived :32 csmith 11:32 AM ASA Class CLASS II- Mild systemic disease (i.e. well-controlled diabetes, hypertension, asthma, cigarette smoking) csmith 11:32 AM Meet and greet completed csmith 11:32 AM Sign in performed according to hospital policy. csmith 11:32 AM HR=62 bpm, OKCS=007/68 mmhg, OjQ5=991.0 %, Resp=19 B/min, Comment=sr 11:32 AM Procedure start : csmith 11: AM Time: : Oxygen on at 2 L/min per nasal cannula by Harris Lee RN csmith : AM Time: : Versed 2 mg Intravenous Given by Harris Lee RN [facility] : AM Time: :32 Fentanyl 50 mcg Intravenous Given by Harris Lee RN [facility] 11:33 AM Time: :33 Patient comfortable and pain free: Yes csmith 11:33 AM Time: :33LOC: 5 = Fully awake and oriented or at pre-proc level csmith 11:34 AM Case Start : AM Pressure channel 1 zeroed. 11:37 AM HR=57 bpm, EDBH=453/64 mmhg, SpO2=98.0 %, Resp=16 B/min, Comment=sb 11:40 AM Pressure channel 1 zeroed. 11:42 AM HR=57 bpm, OBSC=980/66 mmhg, SpO2=98.0 %, Resp=23 B/min, Comment=sb : AM Time: : Versed 1 mg Intravenous Given by Harris Lee RN [facility] : AM Time: : Fentanyl 25 mcg Intravenous [facility] AM Time out performed according to hospital policy csmith :44 AM Time: : 16 ml Lidocaine 2% to right groin Subcutaneous Given by Arnold Turpin MD, [facility] csmith 11:45 AM Access obtained by percutaneous puncture. 5Fr 10cm Terumo Tennyson sheath placed in right Femoral artery. [id number] csmith 11:45 AM 5Fr FR 4 catheter inserted over the wire DNC csmith 11:46 AM 0.035 145cm Navilyst 3mmJ wire [id number] csmith 11:46 AM RCA angiography performed in multiple views. csmith 11:46 AM Recorded Pressure: Ao, HR=55, Condition=Condition 1 (Aorta) Ao 87/61/74 11:47 AM SVG to the RPDA angio performed in multiple views. csmith 11:47 AM HR=57 bpm, OOBD=588/66 mmhg, SpO2=98.0 %, Resp=19 B/min, Comment=sb 11:48 AM Time: 11:33LOC: 4 = Oriented but drowsy csmith 11:48 AM Time: 11:33 Patient comfortable and pain free: Yes csmith 11:49 AM Lesion found in Right PDA. Pre Stenosis: 90 Pre GABBY Flow: csmith 11:49 AM Lesion found in Proximal RCA. Pre Stenosis: 80 Pre GABBY Flow: csmith 11:50 AM catheter removed csmith 11:50 AM 0.035 260cm Navilyst 3mmJ wire [id number] csmith 11:50 AM 5Fr IM catheter inserted over the wire [id number] csmith 11:51 AM Left FRANCISCO to the LAD angio performed in multiple views. csmith 11:52 AM Catheter removed csmith 11:52 AM 5Fr LCB catheter inserted over the wire [id number] csmith 11:52 AM HR=56 bpm, RJVM=527/64 mmhg, SpO2=97.0 %, Resp=19 B/min, Comment=sb 11:53 AM Recorded Pressure: Ao, HR=59, Condition=Condition 1 (Aorta) Ao 98/58/75 11:53 AM SVG to the 1st Diagonal angio performed in multiple views. csmith 11:54 AM SVG to the 1st OM angio performed in multiple views. csmith 11:54 AM Catheter removed csmith 11:54 AM 5Fr FL 4 catheter inserted over the wire DNC csmith 11:55 AM Coronary Dominance: right csmith 11:55 AM LCA angiography performed in multiple views. csmith 11:56 AM Lesion found in Proximal LAD. Pre Stenosis: 70 Pre GABBY Flow: csmith 11:56 AM Lesion found in Mid LAD. Pre Stenosis: 70 Pre GABBY Flow: csmith 11:56 AM Lesion found in 1st Diagonal. Pre Stenosis: 95 Pre GABBY Flow: csmith 11:56 AM Lesion found in Proximal Circumflex. Pre Stenosis: 95 Pre GABBY Flow: csmith 11:56 AM Catheter removed csmith 11:56 AM 5Fr Pigtail catheter inserted over the wire DNC csmith 11:56 AM Catheter selectively placed in left ventricle csmith 11:56 AM Bolus angiogram of left Ventricle complete: 10 ml/sec for a total of 20 mls csmith 11:57 AM Recorded Pressure: LV, HR=60, Condition=Condition 1 (Left Ventricle) LV 91/1/11 11:57 AM Catheter removed csmith 11:57 AM HR=56 bpm, MZAO=696/61 mmhg, SpO2=97.0 %, Resp=34 B/min, Comment=sb 11:57 AM Recorded Pressure: LV, Ao, HR=57, Condition=Condition 1 (Left Ventricle) LV 93/3/13, (Aorta) Ao 88/48/67 11:58 AM Bolus angiogram of right Femoral complete: 4 ml/sec for a total of 7 mls csmith 11:58 AM Wire removed csmith 11:58 AM Procedure completed at 11:58 csmith 11:59 AM Sign out completed: Radiation Dose 238 mGy Fluoro Time: 3.3 Isovue 370 - 200ml contrast 74 ml given by Arnold Turpin MD, [facility]. Complications: NoneCardiac Rehab Consult needed: YesConfirmed administered medications: Yes csmith 11:59 AM Arterial sheath pulled, Mynx closure device used and was Successful [id number] S/N. csmith 11:59 AM Post ECG NSR csmith 11:59 AM Post Blood Pressure 103/61 csmith 11:59 AM 11:59 Post Pulses Bilateral DP 1+ csmith 12:00 PM Information taught Cardiac Cath and Mynx csmith 12:00 PM Education needs Responsibilities of Patient in Care csmith 12:00 PM Learning barriers :None csmith 12:00 PM Education Methods Verbal csmith 12:00 PM Education evaluation Able to repeat information csmith 12:00 PM Site status No bleeding/hematoma - Rt Groin as reported by So Vaughan RT (R) at 12:00 csmith 12:00 PM Opsite applied csmith 12:00 PM Plavix, Effient or Brilinta given No csmith 12:00 PM Family placed in consult room. csmith 12:04 PM Report given to 3B RN Pt taken to Room #49. 12:00 csmith 12:04 PM Time: 11:48 Patient comfortable and pain free: Yes csmith 12:04 PM Time: 11:48LOC: 5 = Fully awake and oriented or at pre-proc level csmith 12:07 PM Patient out of room: 12:07 csmith Complications Complication None Hemodynamics Pressures Site Systolic/A Wave Diastolic/V Wave Mean AO 87 61 74 AO 98 58 75 LV 91 1 11 LV 93 3 13 AO 88 48 67 Post Procedure Information Blood Pressure: 103/61 mmHg Rhythm: NSR Post procedural instructions were given Closure Device Time Device Success/Fail 11/25/2016 12:04:00 PM MynxGrip Successful Site Checks Time Location Status Staff Sheath In? Note 12:00 PM Rt Groin No bleeding/hematoma So Vaughan RT (R) Pulses Time Site Pre-Procedure Post-Procedure Note Bilateral DP \\T\\ PT 2+ Bilateral radial 2+ 11:59:00 AM Bilateral DP 1+ Updated by Shubham Bronson RN on 11/25/2016 12:07:59 PM electronically signed on 11/25/2016 12:08:27 PM with status of Final
--- NOTE | 2016-11-25 12:19 | Invasive Diagnostic Lab ---
Name: Reyes Graff Date of Study: 11/25/2016 Date: 1965 Ht: 160.0 cm /63.0 in Medical Record#: [id number] Age: 51 Wt: 66.8 kg / 147.27 lb Account/Order#: [id number] Gender: Male BSA: 1.7 Order #: [id number] Fluoro Dose: 238 mGy BMI: 26.09 Procedure Physician: Arnold Turpin MD, [facility] Referring MD: Referring MD: Procedures Performed: LEFT HEART CATH W/ GRAFTS Indications: Coronary Artery Disease, Angina, Abnormal stress test Impressions: There is severe three vessel coronary artery disease. The left ventricle has mildly abnormal contractility EF 45% S/P CABG 4 of 4 patent bypass grafts. Recommendations: Optimal medical therapy of patient's disease. Aggressive risk factor modification. History/Risk Factors: Hypertension CHF Prior NE Previous CABG Procedure Access obtained in the right Femoral artery by percutaneous puncture A LCB catheter was used to access the SVG to OM and 1st diagonal arteries. Complications: None Contrast: Isovue 74ml Closure Device: MynxGrip Hemodynamics: Pressures Site Systolic/ A Wave Diastolic/ V Wave End Diastolic/ Mean HR AO 87 61 74 55 AO 98 58 75 59 LV 91 1 11 60 LV 93 3 13 70 AO 88 48 67 49 LV Ventriculography Ejection Method: LV Gram Ejection Fraction: 45% Wall Motion: [place] Anterobasal Normal Anterolateral Normal Apical: Severe Hypokinesis Inferoapical Severe Hypokinesis Inferobasal Severe Hypokinesis Coronary Dominance: right Lesion Findings/Interventions * Left Main Coronary Artery The LMCA is angiographically free of disease. * Left Anterior Descending There is a 70% stenosis in the Proximal LAD. There is a 70% stenosis in the Mid LAD. There is a 95% stenosis in the 1st Diagonal. * Circumflex There is a 95% stenosis in the Proximal Circumflex. * Right Coronary Artery There is a 80% stenosis in the Proximal RCA. There are stents from a previous procedure that are noted in the proximal and mid RCA (stent restenosis). There is a 90% stenosis in the Right PDA. There is a 40% lesion in the RPDA distal to the SVG anastamosis. Additional Findings: Grafts * The saphenous vein graft to the Right PDA is patent. GABBY flow is 3. There is a 40% lesion in the RPDA post-graft anatamosis. * The left internal mammary graft to the Mid LAD is patent. GABBY flow is 3. * The saphenous vein graft to the 1st Diagonal is patent. GABBY flow is 3. (LCB catheter) * The saphenous vein graft to the 1st Marginal is patent. GABBY flow is 3. (LCB catheter) Updated by Shubham Bronson RN on 11/25/2016 12:06:21 PM Arnold Turpin MD, FACC electronically signed on 11/25/2016 12:15:34 PM with status of Final
--- NOTE | 2016-11-25 12:56 | Event Note ---
Date of Encounter: 11/25/16 Time of Encounter: 12:50 - Cardiology Event Note S/p lHC. Showed patent RCA stents and patent bypass grafts. No intervention. Continue asa, plavix, statin, and bb. Out-pt f/u with cardiology will be made in 2-3 weeks.
[2016-11-25 15:06] VITALS: BP 106/69
--- NOTE | 2016-11-25 16:26 | Discharge Summary ---
Date of Encounter: 11/25/16 Time of Encounter: 16:22 - Discharge Diagnosis (1) Tobacco abuse Priority: Secondary Status: Chronic (2) Chest pain Priority: Primary Status: Acute Qualifiers: Chest pain type: unspecified Qualified Code(s): R07.9 - Chest pain, unspecified (3) CAD (coronary artery disease) Priority: Secondary Status: Chronic Qualifiers: Coronary Disease-Associated Artery/Lesion type: bypass graft [place] vs. transplanted heart: [place] heart Associated angina: without angina Qualified Code(s): I25.810 - Atherosclerosis of coronary artery bypass graft(s) without angina pectoris (4) Essential hypertension Priority: Secondary Status: Acute (5) Abnormal stress test Priority: Secondary Status: Acute (6) PVC (premature ventricular contraction) Priority: Secondary Status: Acute - Discharge Medications Prescriptions: Isosorbide MONOnitrate (24 HR) [Imdur] 30 mg PO DAILY #30 tab.er.24h Home Medications: Clopidogrel [Plavix] 75 mg PO DAILY #30 tablet 01/10/16 [Rx] Metoprolol [Lopressor] 12.5 mg PO BID #30 tablet 01/10/16 [Rx] Nitroglycerin 0.4 mg SL Q5MIN PRN #25 tab.subl 01/10/16 [Rx] Aspirin 81 mg PO BID 06/13/16 [History] Atorvastatin Calcium [Lipitor] 80 mg PO HS 11/22/16 [History] Cholecalciferol (D-3) [Vitamin D] 1,000 unit PO DAILY 11/22/16 [History] Cyanocobalamin (Vitamin B-12) [Vitamin B12] 1,000 mcg PO DAILY 11/22/16 [History ] Etodolac 500 mg PO BID 11/22/16 [History] Gabapentin [Neurontin] 800 mg PO TID 11/22/16 [History] Levothyroxine [Synthroid] 25 mcg PO QAM 11/22/16 [History] Isosorbide MONOnitrate (24 HR) [Imdur] 30 mg PO DAILY #30 tab.er.24h 11/25/16 [ Rx] Allergies/Adverse Reactions: Allergies Penicillins Allergy (Verified 01/07/16 17:38) Anaphylaxis Procedures/tests Complete & Pending: Procedures Performed prior 72 hours Category Date Time Status Left Heart Cath [CL Cardiac Catheterization] [CL] 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 11/25/16 10:37 Completed Routine NM rudolph perf SPECT multi [NM] Routine Exams 11/22/16 23:56 Taken SP pharm nuclear stress Routine Y 11/23/16 Completed Date of admission: 11/22/16 22:32 Primary care physician: Kaley Pyle CNP Consults: 11/23/16 11:59 Consult to Cardiology [CONS] Routine Comment: Consulting Provider: Cardiology Vanessa Reason for Consult: Abnl stress Time Notified: 11:59 Call Completed: Yes - Patient Status Disposition: Home, Self-Care Condition: Good Functional capacity at discharge: independent ambulation Overall status at discharge: patient is back to baseline - Discharge Instructions Follow Up With: Kaley Pyle CNP [Primary Care Provider] - 12/03/16 1:20 pm Forms: ED Satisfaction Letter Additional Instructions: RISK FACTORS: STOP SMOKING: If you smoke, STOP. Smoking or tobacco use significantly increases your risk of heart disease because nicotine causes the arteries to narrow or constrict. It also causes fats to stick to the artery. Your chances of having a heart attack are greatly increased if you continue to smoke. For more information, call the education line for smoking cessation 1-979-BETZKGK EAT A LOW FAT/CHOLESTEROL/SODIUM DIET: This diet may help reduce your chances of having a heart attack. LIFTING: Avoid lifting anything more than 10 pounds for 5-7 days Prior to straining, laughing, sneezing and/or coughing, apply manual pressure directly over insertion site. ACTIVITY: You may walk or climb stairs as tolerated You can resume sexual activity as tolerated In general, you are encouraged to engage in a minimum of 30 minutes or more of moderate intensity physical activity, such as brisk walking, daily or at least 3 -4 times weekly BATHING Do not submerge the site into water (bath tub, hot tub, swimming pool) for 1 week. This can be a source for infection into the blood stream. You may shower after 24 hours SITE CARE: After 24 hours, you may remove the dressing and leave the site open to air. Keep the site clean and dry. Clean gently and pat dry. You can expect bruising and tenderness that gradually resolve within a week or two. Return to work as instructed per your physician Resume driving as instructed per physician Keep all scheduled follow up appointments Resume medications as instructed IMPORTANT: If prescribed a Platelet Aggregation Inhibitor such as, Plavix, Brilinta or Effient: Duration of therapy is minimum one year These medications are often used in combination with Aspirin in prevention of future heart attacks Never discontinue unless consult with your Director Sports STROKE (CVA) Risk factors for a stroke are: Age, cigarette smoking, diabetes, excessive alcohol consumption, family history, high blood pressure, overweight, physical inactivity, prior stroke, heart attack, diagnosis of carotid artery stenosis or other artery disease. Warning signs: Sudden numbness or weakness of the face, arm or leg; especially on one side of the body, sudden confusion, trouble speaking or understanding, sudden trouble seeing in one or both eyes, sudden trouble walking, dizziness, loss of balance or coordination, sudden severe headache with no cause. Call 911 or go to the Emergency Room. CONGESTIVE HEART FAILURE: If you have been diagnosed with Congestive Heart Failure (CHF) and your symptoms return, make an appointment with your physician Weigh yourself daily. Notify your physician if you have a weight gain of two or more pounds in one day or five or more pounds in one week. If you experience any difficulty breathing, please call 911 BLEEDING: Although the risk of bleeding is minimal, it can happen. If you have any bleeding from the site, apply firm pressure above the puncture site for 10-15 minutes. If the bleeding does not stop, continue manual pressure and call 911 Contact your physician if: You develop a fever greater than 101 degrees Fahrenheit Your site becomes reddened or has any drainage You have an increase in pain or burning at the site or if a large knot forms at the site. If you experience chest pain, shortness of breath, dizziness, or extreme tiredness, stop the activity and rest. Please notify your physicians office if you experience any of these symptoms and they are not relieved by rest please call 911! - Diet and Activity Activity: increase activity as tolerated Diet: low fat, low cholesterol, low salt diet Hospital course: Mr. Graff is a 51 year old male with past medical history significant for coronary artery disease status post CABG 1 year ago who presented to the hospital with left shoulder and upper back pain radiating to to the front of the chest and down to his belly button. He said the pain was similar to his previous AR symptoms. His initial EKG was nondiagnostic. Troponin was negative. The patient was placed in observation. Cardiac monitoring revealed multiple PVCs but no malignant ventricular arrhythmia. Serial troponins were negative. He had a stress test which showed a fixed inferior wall defect with vishal-infarct ischemia. He was evaluated by cardiology and started on isosorbide mononitrate. His symptoms improved but he continues to have some mild dull left shoulder pain. I suspect this may likely be mostly musculoskeletal and not cardiac. He had a cardiac catheterization done today which showed severe triple-vessel disease with patent four-vessel CABG and mild to 40% post graft to RPDA lesion. Cardiology recommended maximal medical management and cleared him for discharge home. I have counseled patient extensively regarding the benefits of smoking cessation. He had quit smoking cigarettes one year ago after his CABG but uses vaporizer with nicotine. I informed him about the risks of using inhaled nicotine. He will be started on Imdur for now will be discharged home with close follow-up with primary care physician. Time spent discussing smoking cessation with patient: 3 to 10 minutes - Time Spent with Patient Total time spent providing and/or coordinating discharge services: Greater than 30 minutes (I have spent 45 minutes coordinating this discharge) - Constitutional Vitals: Temp Pulse Resp BP Pulse Ox 97.2 F L 52 16 106/69 96 11/25/16 12:15 11/25/16 15:00 11/25/16 15:00 11/25/16 15:00 11/25/16 15:00 General appearance: Present: A&O X 3, answers questions appropriately - Eye Eye exam: Present: PERRL, conjuntiva pink, sclera anicteric Pupils: Present: PERRL - Respiratory Respiratory exam: Present: CTAB. Absent: accessory muscle use, rales, rhonchi, wheezes - Cardiovascular Cardiovascular exam: Present: RRR, +S1, +S2. Absent: diastolic murmur, gallop, rubs, systolic murmur Additional comments: Median sternotomy scar - Extremities Exam Extremities exam: Present: warm, radial pulses palpable and symetrical. Absent : calf tenderness, cyanotic, pedal edema - Skin Skin exam: Present: dry, intact
--- NOTE | 2016-11-25 16:42 | Electrocardiograph Report ---
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
--- NOTE | 2016-11-26 16:37 | Electrocardiograph Report ---
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
== END 2016-11-25 17:20 | disposition home or self-care (01) ==
LOC: 3BNU 20:47 → EMEROO 20:47 → SUATTDRO 22:32 → 3BNU 22:56
PROVIDERS: ADMIT Internal Medicine; ATTEND Internal Medicine